=== PATIENT | female | born 1940 | race Caucasian/White ===

== ENCOUNTER 2016-09-18 21:19 | Emergency (ER) | payer OTHER, MEDICARE ==
[~2016-09-18] VITALS: Ht 157.5 cm; Wt 70.8 kg
--- NOTE | 2016-09-18 21:29 | ED AMS/SEIZURE/WEAK/DIZZY ---
History of Present Illness General Chief Complaint: Dizziness Stated Complaint: BIBA FOR EVAL OF DIZZNESS Source: patient, family, old records, EMS Exam Limitations: no limitations Vital Signs & Intake/Output Vital Signs & Intake/Output Vital Signs Date Time Temp Pulse Resp B/P Pulse O2 O2 Flow FiO2 Ox Delivery Rate 09/18 2202 84 148/78 09/18 2142 97 Room Air 09/18 2122 96.6 58 18 198/102 99 Nasal Cannula ED Intake and Output 09/19 0000 09/18 1200 Intake Total Output Total Balance Patient 156 lb Weight Allergies Coded Allergies: Sulfa (Sulfonamide Antibiotics) (RED RASH FROM HEAD TO TOE 09/18/16) Reconcile Medications Famotidine/Ca Carb/Mag Hydrox (Pepcid Complete Tablet Chew) 10 MG-800 MG-165 MG TAB.CHEW 1 TAB PO PRN REFLUX (Reported) Methimazole 5 MG TABLET 1 TAB PO EOD NODULES ON THYROID (Reported) Tamoxifen Citrate 20 MG TABLET 1 TAB PO DAILY BREAST CANCER (Reported) Triage Nurses Notes Reviewed? yes HPI: Patient was sitting watching TV when she developed a substernal chest pressure/ heaviness that radiated through to her back. Patient then states that she developed a pressure sensation in both of her flanks and she felt lightheaded. EMS was contacted. Patient was given 324 mg of aspirin. Patient states that at its worst the pain was 5 out of 10 and is currently a 2 out of 10. She denies any room spinning dizziness. There is no nausea or vomiting. There is no diaphoresis. Patient states the lightheadedness and the bilateral flank pain have resolved and she still only has the substernal chest pressure. Past History Travel History Traveled to [place] past 21 day No Medical History Any Pertinent Medical History? see below for history Endocrine: hyperthyroidism Cancer(s): breast cancer Pneumonia Vaccine: 06/03/13 Influenza Vaccine: 06/03/14 Surgical History Surgical History: LUMPECTOMY Psychosocial History Who do you live with Spouse Services at Home None What is your primary language Pakistani Family History Hx Contributory? No Review of Systems Review of Systems Constitutional: Reports: no symptoms. EENTM: Reports: no symptoms. Respiratory: Reports: see HPI, short of breath. Cardiovascular: Reports: no symptoms. GI: Reports: see HPI, nausea. Genitourinary: Reports: no symptoms. Musculoskeletal: Reports: no symptoms. Skin: Reports: no symptoms. Neurological/Psychological: Reports: no symptoms. Hematologic/Endocrine: Reports: no symptoms. Immunologic/Allergic: Reports: no symptoms. All Other Systems: Reviewed and Negative Physical Exam Physical Exam General Appearance: well developed/nourished, alert, awake, anxious, mild distress Head: atraumatic, normal appearance Eyes: Bilateral: PERRL, EOMI. Ears, Nose, Throat: normal pharynx, normal ENT inspection, hearing grossly normal Neck: normal inspection, supple, full range of motion, NO JVD Respiratory: normal breath sounds, chest non-tender, no respiratory distress, lungs clear Cardiovascular: regular rate/rhythm, normal peripheral pulses, systolic murmur Gastrointestinal: normal bowel sounds, soft, non-tender, no organomegaly Back: normal inspection, normal range of motion, NO CVA TENDERNESS Extremities: normal range of motion Neurologic/Psych: no motor/sensory deficits, awake, alert, oriented x 3, normal gait, normal mood/affect Skin: intact, normal color, warm/dry Lymphatic: no anterior cervical brooks Core Measures ACS in differential dx? Yes ASA ordered for poss ACS? No-ACS ruled out CVA/TIA Diagnosis: No Severe Sepsis Present: No Septic Shock Present: No Progress Differential Diagnosis: arrythmia, anemia, drug intoxication, electrolyte imbalance, AMI, AORTIC DISSECTION Plan of Care: Orders Procedure Date/time Status Heart Healthy Diet 09/19 B Active TROPONIN LEVEL 09/19 530 Complete EKG 09/19 530 Active Telemetry/Manager Product Marketing 09/18 2127 Active TROPONIN LEVEL 09/18 2127 Complete COMPREHENSIVE METABOLIC PANEL 09/18 2127 Complete CBC WITHOUT DIFFERENTIAL 09/18 2127 Complete EKG 09/18 2120 Active Laboratory Tests 09/19/16 0541: Troponin I < 0.01 09/18/162129: Anion Gap 12, Estimated GFR > 60, BUN/Creatinine Ratio 28.6 H, Glucose 121 H, Calcium 9.3, Total Bilirubin 0.4, AST 56 H, ALT 43, Alkaline Phosphatase 62, Troponin I < 0.01, Total Protein 6.9, Albumin 3.8, Globulin 3.1, Albumin/ Globulin Ratio 1.2, CBC w Diff NO MAN DIFF REQ, RBC 4.78, MCV 88.8, MCH 29.9, RDW 13.4, MPV 8.9, Gran % 55.0, Lymphocytes % 34.6, Monocytes % 7.8, Eosinophils % 2.3, Basophils % 0.3, Absolute Granulocytes 4.9, Absolute Lymphocytes 3.1, Absolute Monocytes 0.7 H, Absolute Eosinophils 0.2, Absolute Basophils 0, PUBS MCHC 33.7 Diagnostic Imaging: Viewed by Me: CT Scan. Discussed w/RAD: CT Scan. Radiology Impression: PATIENT: INDIA CASTILLO PRESENT AGE: 76 PATIENT ACCOUNT NO: [id number] : 39 LOCATION: [facility] ORDERING PHYSICIAN: SHAWN ANDRES MD SERVICE DATE: 09/18/16 EXAM TYPE: CAT - CTA CHEST-AORTIC DISSECTION EXAMINATION: CTA CHEST AORTIC DISSECTION CLINICAL INFORMATION: Chest pain radiating to back COMPARISON: Chest x-ray from earlier today TECHNIQUE: Initial noncontrast CT of the chest was performed. Following this, 95 mL Optiray 350 IV contrast was administered, and multidetector helical imaging was performed through the chest per CTA aortic dissection protocol. Coronal and sagittal reformatted images were created at the technologist workstation. FINDINGS: No evidence of thoracic aortic dissection or aneurysm. No intramural hematoma is seen on the noncontrast series. Origins of the great vessels off the aortic arch are patent. 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 There is mild atherosclerotic plaque and calcification scattered along the thoracic aorta. Although bolus timing was not optimized for assessment of the pulmonary arteries, no pulmonary embolus is seen. No regions of consolidation bilaterally. There is mild subpleural reticulation in the anterior right upper lobe, which reflect sequelae of prior radiation therapy for breast cancer. No pleural effusions. The visualized thyroid gland appears slightly heterogeneous. There are subcentimeter mediastinal lymph nodes within the range of normal variation. Cardiac size is at the upper limits of normal. No pericardial effusion. No axillary lymphadenopathy is present. Clips are noted in the right breast. There are a few small hyperdense right renal lesions suggestive of cysts, though too small to definitively characterize. There is a 1.0 cm nonspecific right adrenal nodule. No acute osseous findings are seen. IMPRESSION: 1. No evidence of aortic dissection. No acute intrathoracic findings. 2. Right adrenal nodule measuring 1.0 cm, statistically likely a small adenoma in the absence of additional risk factors. This may be further assessed with nonemergent adrenal protocol CT. DICTATED BY: ELIZABETH FRAIRE MD DATE/TIME DICTATED:09/18/162316 TOUR COORDINATOR:TYRA DATE/TIME TRANSCRIBED:09/18/162316 CONFIDENTIAL, DO NOT COPY WITHOUT APPROPRIATE AUTHORIZATION. <Electronically signed in Other Vendor System> SIGNED BY: ELIZABETH FRAIRE MD 09/18/162330 CXR Impression: PATIENT: INDIA CASTILLO PRESENT AGE: 76 PATIENT ACCOUNT NO: [id number] : 39 LOCATION: [facility] ORDERING PHYSICIAN: SHAWN ANDRES MD SERVICE DATE: 09/18/16 EXAM TYPE: RAD - XRY-PORTABLE CHEST XRAY EXAMINATION: XR PORTABLE CHEST CLINICAL INFORMATION: Chest pain in a 76-year-old female patient. COMPARISON: Chest x-ray done 2007. (Normal). TECHNIQUE: AP portable semierect view of the chest. FINDINGS: The heart is normal in size. There is mild uncoiling of the thoracic aorta as previously noted. Lungs are clear showing no evidence of acute pulmonary parenchymal or pleural disease. Pulmonary vascularity is normal. The regional skeletal structures are normal. IMPRESSION: Normal chest. DICTATED BY: RUDDY METZGER MD DATE/TIME DICTATED:09/18/162230 TOUR COORDINATOR:TYRA DATE/ TIME TRANSCRIBED:09/18/162230 CONFIDENTIAL, DO NOT COPY WITHOUT APPROPRIATE AUTHORIZATION. <Electronically signed in Other Vendor System> SIGNED BY: RUDDY METZGER MD 09/18/162235 Initial ED EKG: NSR, nonspecific ST T wave chg Prior EKG: unchanged Repeat EKG: unchanged Rhythm Strip: normal sinus rhythm Comments: Pain resolved after nitroglycerin. Patient and her family have been updated on lab results as well as CAT scan findings. Patient will have a repeat troponin in a few hours. If the repeat troponin remains negative the patient will be stable for discharge. Patient advised that all we are able to do is tell her that she did not have a heart attack and that there is no dissection. Patient advised that she will need further workup for evaluation of this chest pain. Departure Departure Disposition: HOME OR SELF CARE Condition: Stable Clinical Impression Primary Impression: Nonspecific chest pain Referrals: SALAZAR GAVIN PhD,AMBER CASTRO MD,Jane PEREA (PCP/Family) Additional Instructions: Follow-up with Dr. Castro and Dr. Mayen. Return if symptoms return or for any concerns. Departure Forms: Customer Survey General Discharge Information
[2016-09-18] MEDS ORDERED: TAMOXIFEN CITRA20 M1 PO (21:37)
[2016-09-18] MEDS ORDERED: PEPCID COMPLET1 EACH PO (21:38)
[2016-09-18] MEDS ORDERED: METHIMAZOLE5 M1 PO (21:38)
[2016-09-18 21:49] LABS: ABSOLUTE BASOPHIL COUNT 0 /CUMM (0.0-0.2); ABSOLUTE EOSINOPHIL COUNT 0.2 /CUMM (0.0-0.7); ABSOLUTE GRANULOCYTE CT 4.9 /CUMM (1.4-6.5); ABSOLUTE LYMPH COUNT 3.1 /CUMM (1.2-3.4); ABSOLUTE MONOCYTE COUNT 0.7 /CUMM (0.10-0.60); BASOPHIL % 0.3 % (0.0-2.0); EOSINOPHIL % 2.3 % (0-5); HEMATOCRIT 42.5 % (37-47); MEAN CORPUSCULAR HGB 29.9 PG (27.0-31.0); MEAN CORPUSCULAR HGB CONC 33.7 G/DL (33.0-37.0); MEAN CORPUSCULAR VOLUME 88.8 FL (81.0-99.0); MEAN PLATELET VOLUME 8.9 FL (7.4-10.4); PLATELET COUNT 198 /CUMM (130-400); RBC DISTRIBUTION WIDTH 13.4 % (11.5-14.5); RED BLOOD CELL CT 4.78 /CUMM (4.20-5.40); WHITE BLOOD CELL COUNT 8.9 /CUMM (4.8-10.8)
--- NOTE | 2016-09-18 22:36 | RADIOLOGY REPORT ---
EXAMINATION: XR PORTABLE CHEST CLINICAL INFORMATION: Chest pain in a 76-year-old female patient. COMPARISON: Chest x-ray done 06/29/2008. (Normal). TECHNIQUE: AP portable semierect view of the chest. FINDINGS: The heart is normal in size. There is mild uncoiling of the thoracic aorta as previously noted. Lungs are clear showing no evidence of acute pulmonary parenchymal or pleural disease. Pulmonary vascularity is normal. The regional skeletal structures are normal. IMPRESSION: Normal chest.
--- NOTE | 2016-09-18 23:31 | CT SCAN REPORT ---
EXAMINATION: CTA CHEST AORTIC DISSECTION CLINICAL INFORMATION: Chest pain radiating to back COMPARISON: Chest x-ray from earlier today TECHNIQUE: Initial noncontrast CT of the chest was performed. Following this, 95 mL Optiray 350 IV contrast was administered, and multidetector helical imaging was performed through the chest per CTA aortic dissection protocol. Coronal and sagittal reformatted images were created at the technologist workstation. FINDINGS: No evidence of thoracic aortic dissection or aneurysm. No intramural hematoma is seen on the noncontrast series. Origins of the great vessels off the aortic arch are patent. 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 There is mild atherosclerotic plaque and calcification scattered along the thoracic aorta. Although bolus timing was not optimized for assessment of the pulmonary arteries, no pulmonary embolus is seen. No regions of consolidation bilaterally. There is mild subpleural reticulation in the anterior right upper lobe, which reflect sequelae of prior radiation therapy for breast cancer. No pleural effusions. The visualized thyroid gland appears slightly heterogeneous. There are subcentimeter mediastinal lymph nodes within the range of normal variation. Cardiac size is at the upper limits of normal. No pericardial effusion. No axillary lymphadenopathy is present. Clips are noted in the right breast. There are a few small hyperdense right renal lesions suggestive of cysts, though too small to definitively characterize. There is a 1.0 cm nonspecific right adrenal nodule. No acute osseous findings are seen. IMPRESSION: 1. No evidence of aortic dissection. No acute intrathoracic findings. 2. Right adrenal nodule measuring 1.0 cm, statistically likely a small adenoma in the absence of additional risk factors. This may be further assessed with nonemergent adrenal protocol CT.
[2016-09-19 06:37] VITALS: BP 130/60
== END 2016-09-19 07:20 ==
LOC: ERH 21:19
PROVIDERS: Emergency Medicine
DX: R07.89 Other chest pain (principal)
CPT/HCPCS: 93005; 93010